=== PATIENT | male | born 1975 | race Caucasian/White ===

== ENCOUNTER → 2018-02-07 | Outpatient (CLI) | payer MEDICARE ==
[~2018-02-07] MED LIST: CYCLOBENZAPRINE10 MG PO; GEODON80 MG PO; HYDROCODONE BIT1 T11 PO; LAMICTAL200 MG PO; LODINE300 MG PO; MOTRIN800 MG PO; NAPROSYN500 MG PO; NORCO 5-325 TA1 EACH PO; PERCOCET 325 MG1 TA2 PO; PERCOCET 325 MG1 TA5 PO; PERCOCET 325 MG1 TA6 PO; PREDNISONE10 MG PO; PRILOSEC20 MG PO; ROBAXIN500 M1 PO; SAPHRIS10 MG SL; VALIUM2 MG PO; XANAX XR2 MG PO; XANAX1 MG PO; ZOFRAN4 MG PO
== END | disposition home or self-care (01) ==
LOC: ORTHO 01:54
DX: M19.011 Primary osteoarthritis, right shoulder (principal)

== ENCOUNTER → 2018-02-17 | Day surgery (SDC) | payer MEDICARE | DX: M19.011 Primary osteoarthritis, right shoulder (principal); M75.51 Bursitis of right shoulder; M75.81 Other shoulder lesions, right shoulder; K21.9 Gastro-esophageal reflux disease without esophagitis; F17.210 Nicotine dependence, cigarettes, uncomplicated; F31.9 Bipolar disorder, unspecified; B19.20 Unspecified viral hepatitis C without hepatic coma; Z98.890 Other specified postprocedural states; Z88.8 Allergy status to other drugs, medicaments and biological substances; Z80.1 Family history of malignant neoplasm of trachea, bronchus and lung ==

== ENCOUNTER 2018-03-03 06:57 | Emergency (ER) | payer MEDICARE ==
[~2018-03-03] VITALS: Ht 185.4 cm; Wt 105.2 kg
== END 2018-03-03 07:52 | disposition home or self-care (01) ==
LOC: ED 06:57
DX: G89.29 Other chronic pain (principal); M25.511 Pain in right shoulder; Z88.6 Allergy status to analgesic agent; Z79.899 Other long term (current) drug therapy